=== PATIENT | female | born 1970 | race Asian ===

== ENCOUNTER 2019-04-07 14:01 | Emergency (ER) | payer OTHER ==
[~2019-04-07] VITALS: Ht 149.9 cm; Wt 40.4 kg
[2019-04-07 14:20] VITALS: BP 143/65
[2019-04-07] MEDS ORDERED: IBUPROFEN 400 MG TABLET. PO ONE (15:15)
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
--- NOTE | 2019-04-07 15:46 | RAD ---
EXAM: Lumbar spine, 3 views; thoracic spine, 3 views. HISTORY: Pain. COMPARISON: None. FINDINGS: Lumbar spine: 3 views of the lumbar spine are obtained. There is no significant listhesis. The vertebral bodies are normal in height and the disc spaces are preserved. There is lucency traversing the left L5 3 transverse process, likely due to overlying artifact. Thoracic spine: 3 views of the thoracic spine are obtained. There is no listhesis. The vertebral bodies are normal in height and the disc spaces are preserved. IMPRESSION: No acute osseous finding. Electronically signed by: Leann Bennett MD (04/07/2019 3:43 PM) [facility]
[2019-04-07] MEDS ORDERED: ORPH100T PO (16:09)
[2019-04-07] MEDS ORDERED: IBUP-1007 PO (16:09)
[2019-04-07] MEDS ORDERED: HYDR-3164 PO (16:09)
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
== END 2019-04-07 17:00 | disposition home or self-care (01) ==
LOC: ER 14:01
DX: R51 Headache (principal); M54.2 Cervicalgia; M54.5 Low back pain; M54.6 Pain in thoracic spine; G89.11 Acute pain due to trauma; V49.59XA Passenger injured in collision with other motor vehicles in traffic accident, initial encounter; Y93.89 Activity, other specified; Y92.488 Other paved roadways as the place of occurrence of the external cause; Y99.8 Other external cause status
CPT/HCPCS: 70450; 72072; 72100; 72125; 81025; 99284